=== PATIENT | female | born 2000 | race Two or more races ===

== ENCOUNTER 2024-02-23 10:39 | Inpatient (IN) | payer OTHER ==
[~2024-02-23] VITALS: Ht 149.9 cm; Wt 51.3 kg
[2024-02-23 11:51] LABS: BASOPHILS # (AUTO) 0.1 K/uL (0.0-0.2); BASOPHILS % (AUTO) 1.1 % (0.0-2.0); EOSINOPHILS # (AUTO) 0.2 K/uL (0.0-0.7); EOSINOPHILS % (AUTO) 4.7 % (0.0-6.0); HEMATOCRIT 40 % (33-45); HEMOGLOBIN 13.3 g/dL (11.5-14.8); LYMPHOCYTES # (AUTO) 1.3 K/uL (0.8-4.8); LYMPHOCYTES % (AUTO) 27.2 % (20.0-44.0); MEAN CORPUSCULAR HEMOGLOBIN 31 PG (26.0-33.0); MEAN CORPUSCULAR HGB CONC 33 g/dl (31.0-36.0); MEAN CORPUSCULAR VOLUME 95 fL (82-100); MONOCYTES # (AUTO) 0.2 K/uL (0.1-1.30); MONOCYTES % (AUTO) 4.7 % (2.0-12.0); NEUTROPHILS % (AUTO) 62.3 % (43.0-81.0); PLATELET COUNT (AUTO) 225 K/uL (150-450); RED BLOOD CELL COUNT(AUTO) 4.24 MIL/uL (4.0-5.2); RED CELL DISTRIBUTION WIDTH 15.3 % (11.5-15.0); WHITE BLOOD COUNT (AUTO) 4.9 K/uL (4.3-11.0)
[2024-02-23 12:03] LABS: CALCIUM, SERUM 8.7 mg/dL (8.5-10.1); POTASSIUM 4.4 mmol/L (3.5-5.1)
[2024-02-23 12:04] LABS: INR 0.97 (0.91-1.10); PARTIAL THROMBOPLASTIN TIME 41.6 SEC (24.3-34.3); PROTHROMBIN TIME 10.3 SECS (9.2-11.1)
[2024-02-23 12:05] LABS: CREATININE 9.1 mg/dL (0.6-1.3)
[2024-02-23 13:56] LABS: PREGNANCY TEST URINE QUAL NEGATIVE (NEGATIVE)
[2024-02-23 15:52] VITALS: O2SAT 99
[2024-02-23] MEDS ORDERED: ERGO500093 PO (18:09)
[2024-02-23] MEDS ORDERED: CINA30TA2 PO (18:09)
[2024-02-23] MEDS ORDERED: CALC667C6 PO (18:09)
[2024-02-23] MEDS ORDERED: SEVE800T8 PO (18:09)
[2024-02-23] MEDS ORDERED: FAMOTIDINE/PF INJ 20 MG/2 ML VIAL IV ONE (18:13)
[2024-02-23] MEDS ORDERED: FENTANYL PF 100MCG/2ML AMPUL ONE (18:13)
[2024-02-23] MEDS ORDERED: ESMOLOL INJ 100 MG/10 ML VIAL IV ONE (18:13)
[2024-02-23] MEDS ORDERED: HEPARIN SODIUM, PORCINE 1,000 UNIT/ML VIAL ONE (18:31)
[2024-02-23] MEDS ORDERED: IOHEXOL 0 ML IV ONE (18:31)
[2024-02-23] MEDS ORDERED: ROPIVACAINE HCL 0.5% 5 MG/ML 30ML VIAL ONE (18:53)
[2024-02-23] MEDS ORDERED: BACITRACIN ZINC OINT PACKET 1 EA PACKET TP ONE (19:00)
[2024-02-23] MEDS ORDERED: NEOMY SULF/BACITRAC ZN/POLY 15 GM TUBE TP ONE (19:01)
[2024-02-23 20:00] VITALS: BP 131/98; TEMP 97.7; O2SAT 100
[2024-02-24] MEDS ORDERED: ONDANSETRON HCL/PF 4 MG/2 ML VIAL IVP PRN
[2024-02-24] MEDS ORDERED: Z GUARD REMEDY 4 OZ OINT TP PRN
[2024-02-24] MEDS ORDERED: ACETAMINOPHEN 325 MG TABLET PO PRN
[2024-02-24 07:13] LABS: BASOPHILS % (AUTO) 0.6 % (0.0-2.0); HEMATOCRIT 35 % (33-45); HEMOGLOBIN 11.5 g/dL (11.5-14.8); LYMPHOCYTES # (AUTO) 0.6 K/uL (0.8-4.8); LYMPHOCYTES % (AUTO) 8.2 % (20.0-44.0); MEAN CORPUSCULAR HEMOGLOBIN 32 PG (26.0-33.0); MEAN CORPUSCULAR HGB CONC 33 g/dl (31.0-36.0); MEAN CORPUSCULAR VOLUME 96 fL (82-100); MONOCYTES # (AUTO) 0.3 K/uL (0.1-1.30); MONOCYTES % (AUTO) 3.9 % (2.0-12.0); NEUTROPHILS # (AUTO) 6.3 K/uL (1.8-8.9); NEUTROPHILS % (AUTO) 87.3 % (43.0-81.0); PLATELET COUNT (AUTO) 225 K/uL (150-450); RED BLOOD CELL COUNT(AUTO) 3.66 MIL/uL (4.0-5.2); RED CELL DISTRIBUTION WIDTH 14.9 % (11.5-15.0); WHITE BLOOD COUNT (AUTO) 7.2 K/uL (4.3-11.0)
[2024-02-24 07:24] LABS: MAGNESIUM 2.7 mg/dL (1.8-2.4); PHOSPHORUS 7.9 mg/dL (2.5-4.9); POTASSIUM 4.8 mmol/L (3.5-5.1)
[2024-02-24 07:30] VITALS: BP 107/65; TEMP 98.2; O2SAT 99
[2024-02-24 07:53] LABS: CREATININE 10.2 mg/dL (0.6-1.3)
[2024-02-24] MEDS: CALCIUM ACETATE 667 MG CAP/TAB PO SCH (08:24)
[2024-02-24] MEDS: SEVELAMER CARBONATE 800 MG TABLET PO SCH (08:24)
[2024-02-24] MEDS: CINACALCET HCL 30 MG TABLET PO SCH (10:24)
[2024-02-26 08:07] LABS: HBSAG SCREEN Negative (Negative); HEPATITIS A AB, IgM Negative (Negative); HEPATITIS B CORE AB, IgM Negative (Negative)
[2024-02-26] MEDS ORDERED: ERGOCALCIFEROL (VITAMIN D 2) 50,000 UNIT CAPSULE PO SCH (09:00)
== END 2024-02-24 17:39 | disposition home or self-care (01) | DRG 466 ==
LOC: ER 10:46 → TELE 19:42 → MED 02-24
PROVIDERS: ADMIT Nurse Practitioner Acute Care
PROC: 0J2SXYZ Change Other Device in Head and Neck Subcutaneous Tissue and Fascia, External Approach (ICD-10-PCS; principal; 2024-02-23)
PROC: 5A1D70Z Performance of Urinary Filtration, Intermittent, Less than 6 Hours Per Day (ICD-10-PCS; 2024-02-24)
DX: T82.41XA Breakdown (mechanical) of vascular dialysis catheter, initial encounter (principal); N18.6 End stage renal disease; D63.1 Anemia in chronic kidney disease; Y92.89 Other specified places as the place of occurrence of the external cause; Y71.2 Prosthetic and other implants, materials and accessory cardiovascular devices associated with adverse incidents; Z99.2 Dependence on renal dialysis; E83.39 Other disorders of phosphorus metabolism
CPT/HCPCS: 36415; 71045-TC; 80048-TC; 83735-TC; 84100-TC; 84703-TC; 85025-TC; 85730-TC; 86850-TC; 90935-TC; C1750; C1769; G0378; J0690; J1100; J1644; J2405; J2704; J2795; J3010; J3490; J7030; Q9967